=== PATIENT | female | born 2000 | race American Indian/Alaskan Native ===

== ENCOUNTER 2021-04-15 13:01 | Emergency (ER) | payer OTHER, BC ==
--- NOTE | 2021-04-15 21:24 | Emergency Department Report ---
ED Burn/Smoke HPI - General Chief complaint: Burn/Smoke Inhalation Stated complaint: WORK INJURY Time Seen by Provider: 04/15/21 21:09 Source: patient Mode of arrival: Ambulatory Limitations: No Limitations - History of Present Illness Initial comments: 21-year-old female presents to the ER today with complaints of burn to both of her feet while at work. Patient states that she actually dropped some boiling hot water on her feet. She was wearing work shoes and socks at the time of the incident. She states that this occurred around 10:57 AM. She reports pain, blistering and some numbness to the feet. She did take some ibuprofen at the time of the injury which provided some mild relief. Complaint: burn -: hour(s) (about 1057 am today ) Severity scale (0 -10): 9 - Related Data Previous Rx's Medication Instructions Recorded Last Taken Type Acetaminophen/Codeine [Tylenol 1 tab PO Q6H PRN #30 tab 04/15/21 Unknown Rx /Codeine # 3 tab] Ibuprofen [Motrin] 600 mg PO Q8H PRN #30 tablet 04/15/21 Unknown Rx Allergies Allergy/AdvReac Type Severity Reaction Status Date / Time No Known Allergies Allergy Unverified 04/15/21 14:59 Burn HPI - History Stated Complaint: WORK INJURY Chief Complaint: Burn/Smoke Inhalation Time Seen by Provider: 04/15/21 21:09 - Home Meds and Allergies Home Medications: Previous Rx's Medication Instructions Recorded Last Taken Type Acetaminophen/Codeine [Tylenol 1 tab PO Q6H PRN #30 tab 04/15/21 Unknown Rx /Codeine # 3 tab] Ibuprofen [Motrin] 600 mg PO Q8H PRN #30 tablet 04/15/21 Unknown Rx Allergies/Adverse Reactions: Allergies Allergy/AdvReac Type Severity Reaction Status Date / Time No Known Allergies Allergy Unverified 04/15/21 14:59 ED Review of Systems ROS: Stated complaint: WORK INJURY Other details as noted in HPI Comment: All other systems reviewed and negative Constitutional: denies: chills, fever Eyes: denies: eye pain, eye discharge, vision change ENT: denies: ear pain, throat pain Respiratory: denies: cough, shortness of breath, SOB with exertion, SOB at rest, wheezing Cardiovascular: denies: chest pain, palpitations, dyspnea on exertion, edema, syncope, paroxysmal nocturnal dyspnea Gastrointestinal: denies: abdominal pain, nausea, diarrhea, constipation, hematemesis, hematochezia Genitourinary: denies: urgency, dysuria, discharge Skin: other (burn to feet/blister) Neurological: denies: headache, weakness, numbness, paresthesias, confusion, abnormal gait, vertigo Psychiatric: denies: anxiety, depression, auditory hallucinations, visual hallucinations, homicidal thoughts, suicidal thoughts Hematological/Lymphatic: denies: easy bleeding, easy bruising ED Past Medical Hx - Medications Home Medications: Home Medications Medication Instructions Recorded Confirmed Last Taken Type Acetaminophen/Codeine [Tylenol 1 tab PO Q6H PRN #30 tab 04/15/21 Unknown Rx /Codeine # 3 tab] Ibuprofen [Motrin] 600 mg PO Q8H PRN #30 tablet 04/15/21 Unknown Rx ED Physical Exam - General Limitations: No Limitations General appearance: alert, in no apparent distress - Head Head exam: Present: atraumatic, normocephalic, normal inspection - Eye Eye exam: Present: normal appearance, PERRL, EOMI Pupils: Present: normal accommodation - Neck Neck exam: Present: normal inspection, full ROM - Respiratory Respiratory exam: Present: normal lung sounds bilaterally. Absent: respiratory distress, wheezes, rales, rhonchi - Cardiovascular Cardiovascular Exam: Present: regular rate, normal rhythm, normal heart sounds - GI/Abdominal GI/Abdominal exam: Present: soft. Absent: distended, tenderness, guarding, rebound - Extremities Exam Extremities exam: Present: other (small single blister noted medial aspect of right ankle; and small intact single blister noted lateral aspect of left foot and there is also ttp along left lateral aspect of foot but no erythema or swelling) - Neurological Exam Neurological exam: Present: alert, oriented X3, CN II-XII intact, normal gait - Psychiatric Psychiatric exam: Present: normal affect, normal mood ED Course Vital Signs 04/15/21 15:01 Temperature 98.7 F Pulse Rate 94 H Respiratory 18 Rate Blood Pressure 102/58 [Right] O2 Sat by Pulse 99 Oximetry ED Medical Decision Making - Medical Decision Making Patient with a very minor burn to the medial aspect of the right ankle, and the lateral aspect of the left foot with small single blister to the medial aspect of the right ankle and a single blister mainly around the lateral aspect of the left foot. There is no significant erythema or swelling. Sensation of the feet intact. Dorsalis pedis pulse normal. Range of motion of the foot and the toes normal. Discussed treatment plan with patient. Tetanus updated in the ER. Patient expressed understanding agree with plan. Patient stable at time of discharge. Critical care attestation.: If time is entered above; I have spent that time in minutes in the direct care of this critically ill patient, excluding procedure time. ED Disposition Clinical Impression: Burn of first degree of ankle and foot, Burn, second degree Disposition: 01 HOME / SELF CARE / HOMELESS Is pt being admited?: No Does the pt Need Aspirin: No Condition: Stable Instructions: Burn Care, Adult, [id number] Additional Instructions: Keep the foot clean daily with soap and water. You can apply Neosporin after each cleaning. Elevate your leg as often as possible. Do not rupture the blister, allow it to rupture on its own. You can take ibuprofen and the Tylenol threes for pain. Return to the ER if your symptoms changes or worsens in any way. Prescriptions: Ibuprofen [Motrin] 600 mg PO Q8H PRN #30 tablet PRN Reason: Pain Acetaminophen/Codeine [Tylenol /Codeine # 3 tab] 1 tab PO Q6H PRN #30 tab PRN Reason: pain Referrals: PRIMARY CARE, [Primary Care Provider] - 3-5 Days Forms: Work/School Release Form(ED) Time of Disposition: 21:27
[2021-04-15] MEDS ORDERED: TETANUS,DIPH,PERTUSS(ACELL) VACCINE 0.5 ML SYRINGE IM ONE (21:26)
[2021-04-15 21:43] VITALS: BP 111/69
== END 2021-04-15 21:42 | disposition home or self-care (01) ==
LOC: ED 13:01
DX: T25.211A Burn of second degree of right ankle, initial encounter (principal); T25.222A Burn of second degree of left foot, initial encounter; T31.0 Burns involving less than 10% of body surface; Z79.899 Other long term (current) drug therapy; X08.8XXA Exposure to other specified smoke, fire and flames, initial encounter; Y93.89 Activity, other specified; Y92.89 Other specified places as the place of occurrence of the external cause; Y99.8 Other external cause status
CPT/HCPCS: 90471; 90715; 99282